=== PATIENT | male | born 1945 | race Caucasian/White ===

== ENCOUNTER 2017-02-01 19:20 | Inpatient (IN) | payer MEDICARE, OTHER ==
[~2017-02-01] VITALS: Ht 165.1 cm; Wt 67.2 kg
[2017-02-01] MEDS ORDERED: PHOSLOC PO (19:45)
[2017-02-01] MEDS ORDERED: CINA30 PO (19:45)
[2017-02-01] MEDS ORDERED: RANO500T3 PO (19:45)
[2017-02-01] MEDS ORDERED: PREG50 PO (19:45)
[2017-02-01] MEDS ORDERED: PRAV20TA4 PO (19:45)
[2017-02-01] MEDS ORDERED: CLOP75 PO (19:45)
[2017-02-01] MEDS ORDERED: ISOS60TA4 PO (19:45)
[2017-02-01] MEDS ORDERED: HYDR-305 PO (19:45)
[2017-02-01 20:10] LABS: BASOPHILS % (AUTO) 1.9 % (0.0-2.0); EOSINOPHILS % (AUTO) 6.2 % (1.0-6.0); HEMATOCRIT 32.5 % (41-53); HEMOGLOBIN 10.7 g/dL (13.5-17.5); LYMPHOCYTES # (AUTO) 1.1 K/uL (1.0-4.8); LYMPHOCYTES % (AUTO) 15.7 % (22.0-44.0); MEAN CORPUSCULAR HEMOGLOBIN 32.9 pg (26.0-34.0); MEAN CORPUSCULAR HGB CONC 32.9 G/dL (31.0-37.0); MEAN CORPUSCULAR VOLUME 100 fL (80-100); MONOCYTES # (AUTO) 1.1 K/uL (0.1-1.0); NEUTROPHILS # (AUTO) 4.4 K/uL (1.8-7.7); NEUTROPHILS % (AUTO) 61.2 % (40.0-70.0); PLATELET COUNT (AUTO) 177 K/uL (150-450); RED BLOOD CELL COUNT(AUTO) 3.25 MIL/uL (4.50-5.90); RED CELL DISTRIBUTION WIDTH 15.3 % (11.5-14.5); WHITE BLOOD COUNT (AUTO) 7.3 K/uL (4.5-11.0)
[2017-02-01 20:22] LABS: INR 1.1 (0.9-1.1); PROTHROMBIN TIME 11.7 SEC (9.4-11.6)
[2017-02-01 20:24] LABS: ALANINE AMINOTRANSFERASE 11 U/L (12-78); ALBUMIN 2.6 g/dL (3.4-5.0); ANION GAP 6 mmol/L (8-16); ASPARTATE AMINOTRANSFERASE 26 U/L (15-37); BILIRUBIN,TOTAL 0.6 mg/dL (0.1-1.0); CALCIUM, TOTAL 8.6 mg/dL (8.8-10.5); CARBON DIOXIDE 35 mmol/L (22-29); CHLORIDE 97 mmol/L (98-107); CREATINE KINASE, TOTAL 41 U/L (39-308); CREATININE 1.91 mg/dL (0.60-1.30); GLOMERULAR FILTR. RATE CALC 35 mL/min (>60); SODIUM SERUM 138 mmol/L (136-145); TOTAL PROTEIN, SERUM 7.5 g/dL (6.4-8.2); UREA NITROGEN, BLOOD 6 mg/dL (7-18)
[2017-02-01 20:34] LABS: B-TYPE NATRIURETIC PEPTIDE 3870 pg/mL (0-100)
[2017-02-01 20:39] LABS: POTASSIUM 2.6 mmol/L (3.5-5.1)
[2017-02-01] MEDS ORDERED: ASPIRIN 325 MG TABLET PO ONE (20:45)
[2017-02-01] MEDS ORDERED: POTASSIUM CHLORIDE 20 MEQ ER TABLET PO ONE (20:45)
[2017-02-01] MEDS ORDERED: ONDANSETRON HCL 4 MG/2 ML VIAL IVP PRN (21:00)
[2017-02-01] MEDS ORDERED: 0.9% SODIUM CHLORIDE 10 ML SYRINGE IVP PRN (21:00)
[2017-02-01 22:59] VITALS: BP 134/64
[2017-02-01] MEDS: ACETAMINOPHEN 325 MG TABLET PO PRN (23:21)
[2017-02-02 04:11] VITALS: BP 140/72
[2017-02-02 07:23] LABS: BASOPHILS % (AUTO) 1.2 % (0.0-2.0); EOSINOPHILS % (AUTO) 7.1 % (1.0-6.0); HEMATOCRIT 27.5 % (41-53); LYMPHOCYTES # (AUTO) 1.4 K/uL (1.0-4.8); LYMPHOCYTES % (AUTO) 21.8 % (22.0-44.0); MEAN CORPUSCULAR HEMOGLOBIN 32.9 pg (26.0-34.0); MEAN CORPUSCULAR HGB CONC 32.9 G/dL (31.0-37.0); MEAN CORPUSCULAR VOLUME 100 fL (80-100); MONOCYTES # (AUTO) 1.2 K/uL (0.1-1.0); MONOCYTES % (AUTO) 18.5 % (2.0-9.0); NEUTROPHILS # (AUTO) 3.3 K/uL (1.8-7.7); NEUTROPHILS % (AUTO) 51.4 % (40.0-70.0); PLATELET COUNT (AUTO) 165 K/uL (150-450); RED BLOOD CELL COUNT(AUTO) 2.75 MIL/uL (4.50-5.90); RED CELL DISTRIBUTION WIDTH 15.5 % (11.5-14.5); WHITE BLOOD COUNT (AUTO) 6.5 K/uL (4.5-11.0)
[2017-02-02 07:27] VITALS: BP 152/71
[2017-02-02] MEDS: ACETAMINOPHEN 325 MG TABLET PO PRN (08:03)
[2017-02-02 08:10] LABS: ALANINE AMINOTRANSFERASE 7 U/L (12-78); ANION GAP 8 mmol/L (8-16); ASPARTATE AMINOTRANSFERASE 21 U/L (15-37); BILIRUBIN,TOTAL 0.5 mg/dL (0.1-1.0); CALCIUM, TOTAL 8.1 mg/dL (8.8-10.5); CARBON DIOXIDE 32 mmol/L (22-29); CHLORIDE 100 mmol/L (98-107); CREATININE 2.65 mg/dL (0.60-1.30); GLOMERULAR FILTR. RATE CALC 24 mL/min (>60); POTASSIUM 3.4 mmol/L (3.5-5.1); SODIUM SERUM 140 mmol/L (136-145); TOTAL PROTEIN, SERUM 5.7 g/dL (6.4-8.2); UREA NITROGEN, BLOOD 8 mg/dL (7-18)
[2017-02-02] MEDS ORDERED: 0.9% SODIUM CHLORIDE 10 ML SYRINGE IVP PRN (10:00)
[2017-02-02] MEDS ORDERED: BISACODYL 10 MG RECTAL RECTAL SUPPOSITORY PR PRN (10:00)
[2017-02-02] MEDS ORDERED: ACETAMINOPHEN 325 MG TABLET PO PRN (10:00)
[2017-02-02] MEDS ORDERED: ONDANSETRON HCL 4 MG/2 ML VIAL IVP PRN (10:00)
[2017-02-02] MEDS ORDERED: OxyCODONE HCL/ACETAMINOPHEN 5-325 MG TABLET PO PRN (10:00)
[2017-02-02] MEDS ORDERED: MAGNESIUM HYDROXIDE SUSPENSION 30 ML UDCUP PO PRN (10:00)
[2017-02-02] MEDS ORDERED: ALBUTEROL SULFATE 2.5 MG/0.5 ML NEB SOLUTION NEB PRN (10:00)
[2017-02-02] MEDS ORDERED: MORPHINE SULFATE 2 MG/ML SYRINGE IVP PRN (10:00)
[2017-02-02 10:38] LABS: CHOL/HDL RATIO 4.3 (4.2-7.3)
[2017-02-02 10:51] LABS: DIGOXIN < 0.20 ng/mL (0.90-2.00)
[2017-02-02] MEDS ORDERED: POTASSIUM CHLORIDE 20 MEQ ER TABLET PO ONE (11:00)
[2017-02-02] MEDS: NITROGLYCERIN 0.4 MG SUBLINGUAL TABLET #25 SL PRN ×2 (11:10→11:33)
[2017-02-02] MEDS: DOCUSATE SODIUM 100 MG CAPSULE PO SCH ×2 (11:12→20:04)
[2017-02-02] MEDS: CLOPIDOGREL BISULFATE 75 MG TABLET PO SCH (11:12)
[2017-02-02] MEDS: ISOSORBIDE MONONITRATE 60 MG ER TABLET PO SCH (11:12)
[2017-02-02 11:19] VITALS: BP 123/65
[2017-02-02] MEDS: CALCIUM ACETATE 667 MG CAPSULE PO SCH ×2 (11:34→17:16)
[2017-02-02] MEDS: PRAVASTATIN SODIUM 20 MG TABLET PO SCH (11:34)
[2017-02-02] MEDS: HEPARIN SODIUM,PORCINE 5,000 UNITS/ML VIAL SQ SCH ×3 (11:34→23:54)
[2017-02-02] MEDS: CINACALCET HCL 30 MG TABLET PO SCH (12:00)
[2017-02-02] MEDS: ASPIRIN 81 MG EC TABLET PO SCH (12:15)
[2017-02-02] MEDS: RANOLAZINE 500 MG SR TABLET PO SCH ×2 (13:08→20:04)
[2017-02-02] MEDS: PREGABALIN 50 MG CAPSULE PO SCH (13:09)
[2017-02-02 15:40] VITALS: BP 133/75
[2017-02-02 20:24] VITALS: BP 115/62
[2017-02-02 23:20] VITALS: BP 141/68
[2017-02-02] MEDS: HYDROCODONE/ACETAMINOPHEN 10-325 MG TABLET PO PRN (23:55)
[2017-02-03 03:37] VITALS: BP 119/65
[2017-02-03 07:30] LABS: BASOPHILS # (AUTO) 0.07 K/uL (0.00-0.20); BASOPHILS % (AUTO) 0.9 % (0.0-2.0); EOSINOPHILS # (AUTO) 0.48 K/uL (0.00-0.70); EOSINOPHILS % (AUTO) 5.55 % (1.0-6.0); HEMATOCRIT 30.1 % (41-53); HEMOGLOBIN 9.7 g/dL (13.5-17.5); LYMPHOCYTES # (AUTO) 2.3 K/uL (1.0-4.8); LYMPHOCYTES % (AUTO) 26.1 % (22.0-44.0); MEAN CORPUSCULAR HGB CONC 32.1 G/dL (31.0-37.0); MEAN CORPUSCULAR VOLUME 103 fL (80-100); MONOCYTES # (AUTO) 1.3 K/uL (0.1-1.0); MONOCYTES % (AUTO) 15.2 % (2.0-9.0); NEUTROPHILS # (AUTO) 4.5 K/uL (1.8-7.7); NEUTROPHILS % (AUTO) 52.2 % (40.0-70.0); PLATELET COUNT (AUTO) 185 K/uL (150-450); RED BLOOD CELL COUNT(AUTO) 2.92 MIL/uL (4.50-5.90); RED CELL DISTRIBUTION WIDTH 15.5 % (11.5-14.5); WHITE BLOOD COUNT (AUTO) 8.6 K/uL (4.5-11.0)
[2017-02-03 07:32] LABS: RBC MORPHOLOGY COMMENT ABNORMAL RBC MORPH
[2017-02-03 07:50] LABS: ALBUMIN 2.4 g/dL (3.4-5.0); BILIRUBIN,TOTAL 0.5 mg/dL (0.1-1.0); CALCIUM, TOTAL 8.8 mg/dL (8.8-10.5); CREATININE 3.74 mg/dL (0.60-1.30); MAGNESIUM 2.1 mg/dL (1.80-2.40); PHOSPHORUS 2.5 mg/dL (2.5-4.9); POTASSIUM 4.2 mmol/L (3.5-5.1); TOTAL PROTEIN, SERUM 6.6 g/dL (6.4-8.2)
[2017-02-03 07:59] VITALS: BP 126/70
[2017-02-03] MEDS: ASPIRIN 81 MG EC TABLET PO SCH (08:30)
[2017-02-03] MEDS: METOPROLOL SUCCINATE 25 MG ER TABLET PO SCH ×2 (08:30→20:29)
[2017-02-03] MEDS: CINACALCET HCL 30 MG TABLET PO SCH (08:30)
[2017-02-03] MEDS: HEPARIN SODIUM,PORCINE 5,000 UNITS/ML VIAL SQ SCH ×3 (08:30→23:59)
[2017-02-03] MEDS: PRAVASTATIN SODIUM 20 MG TABLET PO SCH (08:30)
[2017-02-03] MEDS: RANOLAZINE 500 MG SR TABLET PO SCH ×2 (08:30→20:29)
[2017-02-03] MEDS: CALCIUM ACETATE 667 MG CAPSULE PO SCH ×3 (08:31→18:26)
[2017-02-03] MEDS: LISINOPRIL 5 MG TABLET PO SCH (08:31)
[2017-02-03] MEDS: DOCUSATE SODIUM 100 MG CAPSULE PO SCH ×2 (08:31→20:29)
[2017-02-03] MEDS: PANTOPRAZOLE SODIUM 40 MG DR TABLET PO SCH (08:31)
[2017-02-03] MEDS: ISOSORBIDE MONONITRATE 60 MG ER TABLET PO SCH (08:31)
[2017-02-03] MEDS: PREGABALIN 50 MG CAPSULE PO SCH (08:31)
[2017-02-03] MEDS: CLOPIDOGREL BISULFATE 75 MG TABLET PO SCH (08:31)
[2017-02-03 11:26] VITALS: BP 121/80
[2017-02-03 16:03] VITALS: BP 115/64
[2017-02-03 18:18] VITALS: BP 119/63
[2017-02-03] MEDS: HYDROCODONE/ACETAMINOPHEN 10-325 MG TABLET PO PRN ×2 (18:26→20:29)
[2017-02-03 19:32] VITALS: BP 121/82
[2017-02-03] MEDS: MUPIROCIN CALCIUM 2% 22 GM OINTMENT NASAL SCH (20:29)
[2017-02-04 00:41] VITALS: BP 111/67
[2017-02-04 04:00] VITALS: BP 126/65
[2017-02-04 06:13] LABS: GLUCOSE,POINT OF CARE 85 MG/DL (70-110)
[2017-02-04 07:09] LABS: BASOPHILS % (AUTO) 0.6 % (0.0-2.0); EOSINOPHILS % (AUTO) 4.2 % (1.0-6.0); HEMATOCRIT 30.6 % (41-53); LYMPHOCYTES # (AUTO) 2.3 K/uL (1.0-4.8); LYMPHOCYTES % (AUTO) 27.7 % (22.0-44.0); MEAN CORPUSCULAR HEMOGLOBIN 33.1 pg (26.0-34.0); MEAN CORPUSCULAR HGB CONC 32.8 G/dL (31.0-37.0); MEAN CORPUSCULAR VOLUME 101 fL (80-100); MONOCYTES # (AUTO) 1.3 K/uL (0.1-1.0); MONOCYTES % (AUTO) 15.6 % (2.0-9.0); NEUTROPHILS # (AUTO) 4.3 K/uL (1.8-7.7); NEUTROPHILS % (AUTO) 51.9 % (40.0-70.0); PLATELET COUNT (AUTO) 218 K/uL (150-450); RED BLOOD CELL COUNT(AUTO) 3.04 MIL/uL (4.50-5.90); RED CELL DISTRIBUTION WIDTH 15.2 % (11.5-14.5); WHITE BLOOD COUNT (AUTO) 8.3 K/uL (4.5-11.0)
[2017-02-04 07:28] LABS: CREATININE 4.5 mg/dL (0.60-1.30); POTASSIUM 4.7 mmol/L (3.5-5.1)
[2017-02-04 08:05] VITALS: BP 140/91
[2017-02-04] MEDS: CINACALCET HCL 30 MG TABLET PO SCH (08:47)
[2017-02-04] MEDS: PREGABALIN 50 MG CAPSULE PO SCH (08:47)
[2017-02-04] MEDS: RANOLAZINE 500 MG SR TABLET PO SCH ×2 (08:47→21:06)
[2017-02-04] MEDS: CLOPIDOGREL BISULFATE 75 MG TABLET PO SCH (08:47)
[2017-02-04] MEDS: CALCIUM ACETATE 667 MG CAPSULE PO SCH ×3 (08:47→18:53)
[2017-02-04] MEDS: HEPARIN SODIUM,PORCINE 5,000 UNITS/ML VIAL SQ SCH ×2 (08:47→17:14)
[2017-02-04] MEDS: MUPIROCIN CALCIUM 2% 22 GM OINTMENT NASAL SCH ×2 (08:47→21:06)
[2017-02-04] MEDS: DOCUSATE SODIUM 100 MG CAPSULE PO SCH ×2 (08:48→21:06)
[2017-02-04] MEDS: PRAVASTATIN SODIUM 20 MG TABLET PO SCH (08:48)
[2017-02-04] MEDS: ASPIRIN 81 MG EC TABLET PO SCH (08:48)
[2017-02-04] MEDS: PANTOPRAZOLE SODIUM 40 MG DR TABLET PO SCH (08:48)
[2017-02-04] MEDS: ISOSORBIDE MONONITRATE 60 MG ER TABLET PO SCH (09:00)
[2017-02-04] MEDS: LISINOPRIL 5 MG TABLET PO SCH (09:00)
[2017-02-04] MEDS: METOPROLOL SUCCINATE 25 MG ER TABLET PO SCH ×2 (09:00→21:00)
[2017-02-04 09:43] LABS: RBC MORPHOLOGY COMMENT ABNORMAL RBC MORPH
[2017-02-04 15:50] VITALS: BP 122/68
[2017-02-04 19:45] VITALS: BP 119/66
[2017-02-04 23:19] VITALS: BP 128/63
[2017-02-05] VITALS (7 sets, daily range): BP systolic 118–140; BP diastolic 54–83
[2017-02-05] MEDS: ASPIRIN 81 MG EC TABLET PO SCH ×2 (08:00→18:27)
[2017-02-05] MEDS: HEPARIN SODIUM,PORCINE 5,000 UNITS/ML VIAL SQ SCH ×3 (08:00→16:00)
[2017-02-05] MEDS: CALCIUM ACETATE 667 MG CAPSULE PO SCH ×3 (08:00→18:38)
[2017-02-05 08:24] LABS: ALBUMIN 2.2 g/dL (3.4-5.0); BILIRUBIN,TOTAL 0.5 mg/dL (0.1-1.0); CALCIUM, TOTAL 8.8 mg/dL (8.8-10.5); CREATININE 5.51 mg/dL (0.60-1.30); MAGNESIUM 2.3 mg/dL (1.80-2.40); POTASSIUM 5.4 mmol/L (3.5-5.1); TOTAL PROTEIN, SERUM 6.2 g/dL (6.4-8.2)
[2017-02-05 08:40] LABS: BASOPHILS % (AUTO) 2.9 % (0.0-2.0); HEMATOCRIT 29.4 % (41-53); HEMOGLOBIN 9.7 g/dL (13.5-17.5); LYMPHOCYTES % (AUTO) 24.7 % (22.0-44.0); MEAN CORPUSCULAR HEMOGLOBIN 33.3 pg (26.0-34.0); MEAN CORPUSCULAR VOLUME 101 fL (80-100); MONOCYTES # (AUTO) 1.1 K/uL (0.1-1.0); MONOCYTES % (AUTO) 13.7 % (2.0-9.0); NEUTROPHILS # (AUTO) 4.4 K/uL (1.8-7.7); NEUTROPHILS % (AUTO) 54.7 % (40.0-70.0); PLATELET COUNT (AUTO) 236 K/uL (150-450); RED BLOOD CELL COUNT(AUTO) 2.92 MIL/uL (4.50-5.90); RED CELL DISTRIBUTION WIDTH 14.9 % (11.5-14.5)
[2017-02-05 08:45] LABS: RBC MORPHOLOGY COMMENT ABNORMAL RBC MORPH
[2017-02-05] MEDS: RANOLAZINE 500 MG SR TABLET PO SCH ×2 (09:00→20:38)
[2017-02-05] MEDS: MUPIROCIN CALCIUM 2% 22 GM OINTMENT NASAL SCH ×2 (09:00→20:38)
[2017-02-05] MEDS ORDERED: HEPARIN SODIUM 1000 UNITS/NS 1,000 ML ONE (09:25)
[2017-02-05] MEDS ORDERED: IOHEXOL 300 MG/ML 150 ML VIAL ONE (09:25)
[2017-02-05] MEDS ORDERED: LIDOCAINE HCL/PF 1% 30 ML VIAL ONE (09:25)
[2017-02-05] MEDS ORDERED: SODIUM BICARBONATE 50 MEQ/50 ML VIAL ONE (09:25)
[2017-02-05] MEDS ORDERED: SODIUM CHLORIDE 0.9% 500 ML IV ONE (09:33)
[2017-02-05] MEDS ORDERED: LIDOCAINE 1% 30 ML/SOD BICARB 8.4% 4 ML SQ ONE (09:36)
[2017-02-05] MEDS ORDERED: FentaNYL CITRATE-PF 100 MCG/2 ML VIAL ONE (09:40)
[2017-02-05] MEDS ORDERED: HEPARIN SODIUM 2,000 UNITS in HEPARIN SODIUM 1000 UNITS/NS 1,000 ML IARTER ONE (09:40)
[2017-02-05] MEDS ORDERED: MIDAZOLAM HCL 2 MG/2 ML VIAL ONE (09:41)
[2017-02-05] MEDS ORDERED: HEPARIN SODIUM,PORCINE 1,000 UNITS/ML 10 ML VIAL ONE (09:41)
[2017-02-05] MEDS ORDERED: VERAPAMIL HCL 2.5 MG/ML 2 ML VIAL ONE (09:41)
[2017-02-05] MEDS ORDERED: NITROGLYCERIN 50 MG/D5% WATER 0 ML ONE (09:41)
[2017-02-05] MEDS ORDERED: IOHEXOL 300 MG/ML 150 ML VIAL IARTER ONE (09:45)
[2017-02-05] MEDS ORDERED: IOHEXOL 300 MG/ML 100 ML VIAL IARTER ONE (09:59)
[2017-02-05] MEDS ORDERED: IOHEXOL 300 MG/ML 100 ML VIAL ONE (10:10)
[2017-02-05] MEDS: PANTOPRAZOLE SODIUM 40 MG DR TABLET PO SCH (18:26)
[2017-02-05] MEDS: ISOSORBIDE MONONITRATE 60 MG ER TABLET PO SCH (18:26)
[2017-02-05] MEDS: LISINOPRIL 5 MG TABLET PO SCH (18:26)
[2017-02-05] MEDS: CINACALCET HCL 30 MG TABLET PO SCH (18:26)
[2017-02-05] MEDS: DOCUSATE SODIUM 100 MG CAPSULE PO SCH ×2 (18:27→20:38)
[2017-02-05] MEDS: METOPROLOL SUCCINATE 25 MG ER TABLET PO SCH ×2 (18:27→20:38)
[2017-02-05] MEDS: PREGABALIN 50 MG CAPSULE PO SCH (18:29)
[2017-02-05] MEDS: PRAVASTATIN SODIUM 20 MG TABLET PO SCH (18:29)
[2017-02-05] MEDS ORDERED: DiphenhydrAMINE HCL 50 MG/ML VIAL IVP PRN (18:30)
[2017-02-05] MEDS ORDERED: SODIUM CHLORIDE 0.9% 1,000 ML IV ONE (18:50)
[2017-02-06] VITALS (8 sets, daily range): BP systolic 103–140; BP diastolic 56–76
[2017-02-06] MEDS: HEPARIN SODIUM,PORCINE 5,000 UNITS/ML VIAL SQ SCH ×3 (00:39→16:00)
[2017-02-06 07:22] LABS: BASOPHILS # (AUTO) 0.05 K/uL (0.00-0.20); BASOPHILS % (AUTO) 0.8 % (0.0-2.0); EOSINOPHILS # (AUTO) 0.25 K/uL (0.00-0.70); EOSINOPHILS % (AUTO) 3.59 % (1.0-6.0); HEMATOCRIT 26.8 % (41-53); HEMOGLOBIN 8.6 g/dL (13.5-17.5); LYMPHOCYTES # (AUTO) 1.6 K/uL (1.0-4.8); LYMPHOCYTES % (AUTO) 22.9 % (22.0-44.0); MEAN CORPUSCULAR HEMOGLOBIN 32.9 pg (26.0-34.0); MEAN CORPUSCULAR HGB CONC 32.2 G/dL (31.0-37.0); MEAN CORPUSCULAR VOLUME 102 fL (80-100); MONOCYTES # (AUTO) 1.1 K/uL (0.1-1.0); MONOCYTES % (AUTO) 16.1 % (2.0-9.0); NEUTROPHILS % (AUTO) 56.7 % (40.0-70.0); PLATELET COUNT (AUTO) 184 K/uL (150-450); RED BLOOD CELL COUNT(AUTO) 2.63 MIL/uL (4.50-5.90); RED CELL DISTRIBUTION WIDTH 15.5 % (11.5-14.5)
[2017-02-06 07:41] LABS: CALCIUM, TOTAL 7.9 mg/dL (8.8-10.5); CREATININE 2.89 mg/dL (0.60-1.30); POTASSIUM 4.2 mmol/L (3.5-5.1)
[2017-02-06 08:28] LABS: RBC MORPHOLOGY COMMENT ABNORMAL RBC MORPH
[2017-02-06] MEDS: CALCIUM ACETATE 667 MG CAPSULE PO SCH ×3 (09:10→18:24)
[2017-02-06] MEDS: DOCUSATE SODIUM 100 MG CAPSULE PO SCH ×2 (09:11→22:09)
[2017-02-06] MEDS: CINACALCET HCL 30 MG TABLET PO SCH (09:11)
[2017-02-06] MEDS: MUPIROCIN CALCIUM 2% 22 GM OINTMENT NASAL SCH ×2 (09:11→22:07)
[2017-02-06] MEDS: ISOSORBIDE MONONITRATE 60 MG ER TABLET PO SCH (09:12)
[2017-02-06] MEDS: PREGABALIN 50 MG CAPSULE PO SCH (09:13)
[2017-02-06] MEDS: PANTOPRAZOLE SODIUM 40 MG DR TABLET PO SCH (09:14)
[2017-02-06] MEDS: METOPROLOL SUCCINATE 25 MG ER TABLET PO SCH ×2 (09:14→21:00)
[2017-02-06] MEDS: LISINOPRIL 5 MG TABLET PO SCH (09:15)
[2017-02-06] MEDS: RANOLAZINE 500 MG SR TABLET PO SCH ×2 (09:15→22:07)
[2017-02-06] MEDS: PRAVASTATIN SODIUM 20 MG TABLET PO SCH (09:17)
[2017-02-06] MEDS: HYDROCODONE/ACETAMINOPHEN 10-325 MG TABLET PO PRN ×2 (10:20→16:38)
[2017-02-06] MEDS ORDERED: DiphenhydrAMINE HCL 50 MG/ML VIAL IVP ONE (22:09)
[2017-02-07] MEDS: HEPARIN SODIUM,PORCINE 5,000 UNITS/ML VIAL SQ SCH ×3 (00:38→16:54)
[2017-02-07] MEDS: HYDROCODONE/ACETAMINOPHEN 10-325 MG TABLET PO PRN ×2 (02:38→14:39)
[2017-02-07 05:27] VITALS: BP 132/75
[2017-02-07 05:41] LABS: EOSINOPHILS % (AUTO) 5.8 % (1.0-6.0); HEMATOCRIT 25.7 % (41-53); HEMOGLOBIN 8.5 g/dL (13.5-17.5); LYMPHOCYTES % (AUTO) 28.1 % (22.0-44.0); MEAN CORPUSCULAR HEMOGLOBIN 33.1 pg (26.0-34.0); MEAN CORPUSCULAR HGB CONC 32.9 G/dL (31.0-37.0); MEAN CORPUSCULAR VOLUME 101 fL (80-100); MONOCYTES # (AUTO) 1.1 K/uL (0.1-1.0); MONOCYTES % (AUTO) 15.6 % (2.0-9.0); NEUTROPHILS # (AUTO) 3.4 K/uL (1.8-7.7); NEUTROPHILS % (AUTO) 49.5 % (40.0-70.0); PLATELET COUNT (AUTO) 215 K/uL (150-450); RED BLOOD CELL COUNT(AUTO) 2.55 MIL/uL (4.50-5.90); RED CELL DISTRIBUTION WIDTH 15.9 % (11.5-14.5)
[2017-02-07 06:22] LABS: ALBUMIN 2.2 g/dL (3.4-5.0); BILIRUBIN,TOTAL 0.6 mg/dL (0.1-1.0); CALCIUM, TOTAL 8.1 mg/dL (8.8-10.5); CREATININE 4.03 mg/dL (0.60-1.30); MAGNESIUM 1.9 mg/dL (1.80-2.40)
[2017-02-07 07:39] LABS: RBC MORPHOLOGY COMMENT ABNORMAL RBC MORPH
[2017-02-07 07:43] VITALS: BP 124/64
[2017-02-07] MEDS ORDERED: EPOETIN ALFA 10,000 UNITS/ML VIAL SQ SCH (09:00)
[2017-02-07 11:26] VITALS: BP 140/71
[2017-02-07] MEDS: CALCIUM ACETATE 667 MG CAPSULE PO SCH ×3 (12:00→18:04)
[2017-02-07 12:12] LABS: GLUCOSE,POINT OF CARE 85 MG/DL (70-110)
[2017-02-07] MEDS: PRAVASTATIN SODIUM 20 MG TABLET PO SCH (14:19)
[2017-02-07] MEDS: ISOSORBIDE MONONITRATE 60 MG ER TABLET PO SCH (14:20)
[2017-02-07] MEDS: DOCUSATE SODIUM 100 MG CAPSULE PO SCH ×2 (14:20→21:11)
[2017-02-07] MEDS: PANTOPRAZOLE SODIUM 40 MG DR TABLET PO SCH (14:20)
[2017-02-07] MEDS: CINACALCET HCL 30 MG TABLET PO SCH (14:21)
[2017-02-07] MEDS: LISINOPRIL 5 MG TABLET PO SCH (14:21)
[2017-02-07] MEDS: RANOLAZINE 500 MG SR TABLET PO SCH ×2 (14:22→21:10)
[2017-02-07] MEDS: MUPIROCIN CALCIUM 2% 22 GM OINTMENT NASAL SCH ×2 (14:22→21:11)
[2017-02-07] MEDS: PREGABALIN 50 MG CAPSULE PO SCH (14:22)
[2017-02-07 14:25] VITALS: BP 131/67
[2017-02-07] MEDS: ASPIRIN 81 MG EC TABLET PO SCH (14:26)
[2017-02-07 15:08] VITALS: BP 124/62
[2017-02-07 19:25] VITALS: BP 129/75
[2017-02-07] MEDS ORDERED: METOPROLOL SUCCINATE 25 MG ER TABLET PO SCH (21:00)
== END 2017-02-07 23:00 | disposition short-term general hospital (02) | DRG 286 ==
LOC: EMS 19:23 → EDSEX 19:23 → 5N 21:44
PROVIDERS: ADMIT Hospitalist; ATTEND Hospitalist
PROC: 4A023N8 Measurement of Cardiac Sampling and Pressure, Bilateral, Percutaneous Approach (ICD-10-PCS; principal; 2017-02-05)
PROC: B2111ZZ Fluoroscopy of Multiple Coronary Arteries using Low Osmolar Contrast (ICD-10-PCS; 2017-02-05)
PROC: B2151ZZ Fluoroscopy of Left Heart using Low Osmolar Contrast (ICD-10-PCS; 2017-02-05)
PROC: 5A1D70Z Performance of Urinary Filtration, Intermittent, Less than 6 Hours Per Day (ICD-10-PCS; 2017-02-05)
PROC: 5A1D70Z Performance of Urinary Filtration, Intermittent, Less than 6 Hours Per Day (ICD-10-PCS; 2017-02-07)
DX: I25.110 Atherosclerotic heart disease of native coronary artery with unstable angina pectoris (principal); N18.6 End stage renal disease; G93.40 Encephalopathy, unspecified; I12.0 Hypertensive chronic kidney disease with stage 5 chronic kidney disease or end stage renal disease; I07.1 Rheumatic tricuspid insufficiency; I35.2 Nonrheumatic aortic (valve) stenosis with insufficiency; J44.9 Chronic obstructive pulmonary disease, unspecified; E78.5 Hyperlipidemia, unspecified; E87.6 Hypokalemia; M10.9 Gout, unspecified; H91.90 Unspecified hearing loss, unspecified ear; I25.2 Old myocardial infarction; Z79.02 Long term (current) use of antithrombotics/antiplatelets; Z87.891 Personal history of nicotine dependence; Z98.61 Coronary angioplasty status; Z99.2 Dependence on renal dialysis; Z88.0 Allergy status to penicillin; Z22.322 Carrier or suspected carrier of Methicillin resistant Staphylococcus aureus
CPT/HCPCS: 82962; 83540; 83550; 83735; 84100; 84132; 87081; 87340; 90935; 93005; 93306; 93460; 93970; 99285; J0885; J1200; J1644; J2250; J2405; J3010; J3490; J7030; Q9967